=== PATIENT | male | born 1985 | race Caucasian/White ===

== ENCOUNTER 2016-04-30 13:43 | Emergency (ER) | payer MEDICAID ==
[2016-04-30] MEDS ORDERED: HYDROmorphone 1 MG/ML Syringe IVPUSH ONE ×2 (14:19→17:29)
[2016-04-30] MEDS ORDERED: Ondansetron 4 MG/2 ML SDV IVPUSH ONE (14:19)
[2016-04-30] MEDS ORDERED: Tamsulosin 0.4 MG Cap.ER PO ONE (14:20)
[2016-04-30] MEDS ORDERED: Sodium Chloride 0.9% 1,000 ML IV SCH (14:30)
[2016-04-30] MEDS ORDERED: Ketorolac 30 MG/ML SDV IVPUSH STA (15:09)
[2016-04-30] MEDS ORDERED: Sodium Chloride 0.9% 10 ML Syringe FLUSH PRN (16:03)
[2016-04-30] MEDS ORDERED: Iopamidol 612 MG/ML 150 ML Bottle IVPUSH ONE (16:03)
[2016-04-30] MEDS ORDERED: Diatrizoate Meglumine/Diatrizoate Sodium 37% 120 ML Bottle PO ONE (16:03)
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
[2016-04-30 18:35] VITALS: BP 141/98
--- NOTE | 2016-05-02 08:34 | CT ---
CT abdomen and pelvis Technique: Multiple axial sections were obtained from above the dome of the diaphragm inferiorly through the pubic symphysis. Intravenous and oral contrast has been given. Delayed images were also obtained through the abdomen and pelvis. Comparison: No previous exam. Findings: Two obstructing calculi noted within the mid right ureter. Larger stone measures approximately 5 mm and smaller stone measures approximately 2 mm. This causes proximal hydronephrosis. Kidneys show no abnormal calcifications. No other abnormal calcifications seen along the course of the ureters. Visualized lung bases are clear. Liver shows no focal parenchymal abnormality. Spleen size is normal. Adrenal glands show no nodule. Pancreas is within normal limits. Aorta shows no aneurysmal dilatation. No retroperitoneal adenopathy or mesenteric abnormalities are seen. Appendix is seen and appears normal. No pelvic mass or adenopathy is seen. Delayed images show contrast throughout the left ureter with lack of contrast within the distal right ureter. Bone window settings were reviewed which appear within normal limits for the patient's age. Impression: 1. Right-sided hydronephrosis secondary to 2 obstructing stones within the mid right ureter with one measuring about 5 mm and second measuring around 2 mm. 2. Other normal findings as described above. Diagnostic code #3 I agree with preliminary report issued by [facility] (preliminary report dictated on 04/30/16, 6:15 PM Central Time)
== END 2016-04-30 18:25 | disposition home or self-care (01) ==
LOC: JD.ED 13:43
DX: N20.1 Calculus of ureter (principal); I10 Essential (primary) hypertension; J45.909 Unspecified asthma, uncomplicated; K21.9 Gastro-esophageal reflux disease without esophagitis; K27.9 Peptic ulcer, site unspecified, unspecified as acute or chronic, without hemorrhage or perforation; G62.9 Polyneuropathy, unspecified; F41.9 Anxiety disorder, unspecified; F17.200 Nicotine dependence, unspecified, uncomplicated; Z88.8 Allergy status to other drugs, medicaments and biological substances; Z79.899 Other long term (current) drug therapy
CPT/HCPCS: 36415; 74177; 80053; 81001; 83690; 85025; 96361; 96374; 96375; 96376; 99284; A9270; J1170; J1885; J2405; J7040; J7050; Q9963; Q9967

== ENCOUNTER 2016-05-14 14:37 | Emergency (ER) | payer MEDICAID ==
[2016-05-14 14:45] VITALS: BP 139/96
--- NOTE | 2016-05-14 15:03 | EDM.PDOC ---
ED HPI RENAL/ - General Chief Complaint: Genitourinary Problem Stated Complaint: POST-SURGICAL ISSUES Time Seen by Provider: 05/14/16 14:55 Source of Information: Reports: Patient History Limitations: Reports: No limitations - History of Present Illness INITIAL COMMENTS - FREE TEXT/NARRATIVE: 30-year-old male tends ED with complaints of diffuse right flank and shaheed- abdominal pain. Patient underwent lithotripsy for removal of 2 stones in the proximal ureter on and [facility] in [facility]. This would've been May 12. He knows he has a urinary stent in place. Today's developed increasing pain particularly in the lower abdomen with grossly bloody urine. This gave him some concern. He thinks he may have notably passage of a small piece of stone today. Pain is constant without colicky component. He has used up all of his pain medication. He was worried that he may be developing infection although he has no fever or chills. Rates it does hurt to void particularly particularly at the end of voiding.was constipated for the first few days but states he had good bowel and this morning after taking laxatives last night. Symptom Onset Date: 05/12/16 Timing/Duration: Reports: Day(s):, Constant, Sudden onset, Waxing/waning Location: Reports: flank (primarily right flank and right lower quadrant of the abdomen.) Quality: Reports: burning, cramping, fullness, stabbing Severity: moderate Improves with: Reports: defecating Worsens with: Reports: urinating Context: Reports: recent surgery (recent right-sided lithotripsy for removal of 2 stones on , May 12.). Denies: sick contact, lifting, activity/ exercise Associated Symptoms: Reports: burning, dysuria, frequency, groin pain, blood in urine, abdominal pain (right flank primarily), constipation. Denies: testicular pain, penile discharge, blood in ejaculate, fever/chills, inguinal mass, nausea/vomiting, can't retract foreskin, diarrhea, bloody stools Treatments [employer]NA[employer]: Reports: Other (see below) ([place] when necessary took his last tablets this morning.) - Related Data Allergies/ADRs: Allergies Allergy/AdvReac Type Severity Reaction Status Date / Time codeine Allergy Difficulty Verified 05/14/16 14:45 Breathing fluoxetine [From Prozac] Allergy Hives Verified 05/14/16 14:45 tramadol [From Ultram] Allergy Difficulty Verified 05/14/16 14:45 Breathing Home Meds: Home Meds buPROPion HCl [Wellbutrin SR] 150 mg PO BID 02/01/16 [History] Gabapentin [Neurontin] 300 mg PO BID 05/14/16 [History] LORazepam [Ativan] 0.5 mg PO TID 05/14/16 [History] Lisinopril 40 mg PO DAILY 05/14/16 [History] Omeprazole Magnesium [Prilosec] 10 mg PO DAILY 05/14/16 [History] Vitamin B Complex/Folic Acid [Vitamin B-100 Complex] 0.4 mg PO DAILY 05/14/16 [ History] amLODIPine [Norvasc] 10 mg PO BEDTIME 05/14/16 [History] oxyCODONE HCl/Acetaminophen [Percocet 5-325 mg Tablet] 1 - 2 each PO Q4H PRN # 24 tablet 05/14/16 [Rx] Past Medical History Cardiovascular History: Reports: Hypertension Respiratory History: Reports: Asthma Gastrointestinal History: Reports: GERD, PUD Genitourinary History: Reports: Acute renal failure, Renal calculus ( lithotripsy carried out May 12, 2016 for removal of 2 stones.) Neurological History: Reports: Neuropathy, peripheral Psychiatric History: Reports: Anxiety - Infectious Disease History Infectious Disease History: Reports: Hepatitis C - Past Surgical History HEENT Surgical History: Reports: Adenoidectomy, Myringotomy w tube(s), Tonsillectomy GI Surgical History: Reports: Colonoscopy, EGD Musculoskeletal Surgical History: Reports: Shoulder surgery Social & Family History - Family History Oncologic: Reports: Lymphoma, Non-Hodgkin's lymphoma Other Oncologic Family History: dad and uncle - Tobacco Use Smoking Status *Q: Current Every Day Smoker Years of Tobacco use: 17 Packs/Tins Daily: 0.5 Used Tobacco, but Quit: No Second Hand Smoke Exposure: No - Caffeine Use Caffeine Use: Reports: None - Recreational Drug Use Recreational Drug Use: No Drug Use in Last 12 Months: Yes Recreational Drug Type: Reports: Marijuana/Hashish Recreational Drug Use Frequency: Socially - Living Situation & Occupation Living situation: Reports: single, other (with friend) Occupation: employed ([employer]) ED ROS GENERAL - Review of Systems Review Of Systems: See Below Constitutional: Reports: fatigue, decreased appetite. Denies: fever, chills, malaise, weakness, weight loss HEENT: Reports: No symptoms Respiratory: Reports: No Symptoms Cardiovascular: Reports: No symptoms Endocrine: Reports: no symptoms GI/Abdominal: Reports: Abdominal pain (see history of present illness), Constipation : Reports: flank pain, frequency, hematuria. Denies: urinary retention Musculoskeletal: Reports: back pain (right flank pain) Skin: Reports: no symptoms Neurological: Reports: No Symptoms Psychiatric: Reports: No symptoms Hematologic/Lymphatic: Reports: no symptoms Immunologic: Reports: no symptoms ED EXAM, RENAL/ - Physical Exam Exam: See Below Exam Limited By: No limitations General Appearance: alert, WD/WN, moderate distress (of a moderate degree of pain.) Throat/Mouth: Normal inspection, Normal lips, Normal oropharynx Neck: normal inspection, supple, non-tender, full range of motion Respiratory/Chest: no respiratory distress, lungs clear, normal breath sounds, no accessory muscle use Cardiovascular: normal peripheral pulses, regular rate, rhythm, no edema, no murmur GI/Abdominal: normal bowel sounds, soft, non tender, no organomegaly, no distention, no abnormal bruit (Male) Exam: No hernia, Normal inspection Back Exam: CVA tenderness (R) (moderate) Extremities: normal inspection, normal range of motion, non-tender, normal capillary refill Neurological: alert, oriented, CN II-XII intact, normal cognition, normal gait Psychiatric: normal affect, normal mood Skin Exam: Warm, Dry, Intact, Normal color, No rash Course - Vital Signs Last Recorded V/S: Last Vital Signs Temp 36.1 C 05/14/16 14:43 Pulse 100 05/14/16 14:43 Resp 18 05/14/16 14:43 BP 139/96 H 05/14/16 14:43 Pulse Ox 98 05/14/16 14:43 - Orders/Labs/Meds Orders: Active Orders 24 hr Category Date Time Status Abdomen 1V Flat [CR] Stat Exams 05/14/16 15:03 Taken Labs: Laboratory Tests 05/14/16 Range/Units 14:55 Urine Color Yellow (Yellow) Urine Appearance Cloudy H (Clear) Urine pH 6.5 (5.0-8.0) Ur Specific [place] > or = 1.030 (1.005-1.030) Urine Protein 3+ H (Negative) Urine Glucose (UA) Negative (Negative) Urine Ketones Trace H (Negative) Urine Occult Blood 3+ H (Negative) Urine Nitrite Negative (Negative) Urine Bilirubin Negative (Negative) Urine Urobilinogen 0.2 (0.2-1.0) Ur Leukocyte Esterase Negative (Negative) Urine RBC >100 H (0-5) /hpf Urine WBC 0-5 (0-5) /hpf Ur Epithelial Cells Not Reportable Ur Squamous Epith Cells 0-5 (0-5) /hpf Urine Bacteria Few (FEW) /hpf Urine Mucus Not seen (FEW) /hpf Meds: Medications Discontinued Medications Generic Name Dose Route Start Last Admin Trade Name Freq PRN Reason Stop Dose Admin Hydromorphone HCl 1 mg 05/14/16 15:04 05/14/16 15:16 Dilaudid IM 05/14/16 15:05 1 mg ONETIME ONE Administration Promethazine HCl 25 mg 05/14/16 15:04 05/14/16 15:14 Phenergan IM 05/14/16 15:05 25 mg ONETIME ONE Administration - Radiology Interpretation Free Text/Narrative:: 30-year-old male presents the ED for evaluation of increased pain in his right flank and right hemiabdomen down into the groin. Also appreciating. Blood in his urine today. Note that the patient underwent lithotripsy on May 12 which was 2 days ago at [facility]. He has a urinary stent in place on the right side. States has been hurting quite badly since time of surgery. She was 20 tablets of [place] the last 2 and half days. Push possible passage of small pieces of stone earlier today. Second problem is been with constipation which she feels he has improved by taking laxatives he had a good bowel movement this morning. Concern that he may have an infection on questioning something to control his pain. Most likely pain is secondary to passage of pieces of stone and the stent itself. Plan given an IM injection of Dilaudid 1 mg with Phenergan 25 mg IM.urinalysis to be obtained and a KUB will be done to make sure the stent is in its appropriate position. - Re-Assessments/Exams Free Text/Narrative Re-Assessment/Exam: 05/14/16 15:30KUB reveals the right-sided pigtail stent to be in the normal anatomical position as one would expect. The distal segment does lie low in the pelvis and likely is adjacent to the floor of the bladder. He is some mild increased stool throughout the right hemicolon. Few dilated loops of small bowel in the left upper abdomen. The urinalysis shows greater than 100 red blood cells per high-power field with no evidence of infection. Plan he will be discharged home with Percocet tablets for pain control and advised to drink plenty of fluids of course to prevent any clots recurring from the hematuria. At this time it is not. He needs any antibiotics. Departure - Departure Time of Disposition: 15:31 Disposition: Home, Self-Care 01 Condition: fair Clinical Impression: Renal colic on right side, Hematuria Prescriptions: oxyCODONE HCl/Acetaminophen [Percocet 5-325 mg Tablet] 1 - 2 each PO Q4H PRN # 24 tablet PRN Reason: pain relief. Referrals: PCP,Unobtain [Primary Care Provider] - Forms: ED Department Discharge Additional Instructions: evaluation in the emergency room today in regards to right flank pain with blood in the urine. You are now 2 days post lithotripsy with a stent in the right ureter to help promote passage of any bits and pieces of stone. X-ray reveals that the stent is in its appropriate position. There is still a small amount of increased stool throughout the right hemicolon but for the most part the left colon is empty. The urinalysis shows 20 red blood cells but no signs of infection. Therefore treatment is dictated triptorelin plenty of fluids. Pain medication Percocet 5 /325 mg tablets one or 2 every 4-6 hours needed for pain relief. Of note is okay to take Aleve 2 tablets every 8 hours as well which will relieve some of the pain and the inflammation caused by the stent. - My Orders Last 24 Hours: My Active Orders 05/14/16 15:03 Abdomen 1V Flat [CR] Stat - Assessment/Plan Last 24 Hours: My Active Orders 05/14/16 15:03 Abdomen 1V Flat [CR] Stat
[2016-05-14] MEDS ORDERED: HYDROmorphone 1 MG/ML Syringe IM ONE (15:04)
[2016-05-14] MEDS ORDERED: Promethazine 25 MG/ML SDV IM ONE (15:04)
--- NOTE | 2016-05-15 16:21 | CR ---
Abdomen: Supine view of the abdomen was obtained. Comparison: No previous abdominal x-ray, previous CT abdomen and pelvis exam of 04/30/16. Findings: Right ureteral stent is seen. Proximal end lies within the expected region of the renal pelvis and distal end lies within the expected region of the bladder. No abnormal calcifications are seen along the course of the ureter. Bowel gas is unremarkable. Bony structures are unremarkable for the patient's age. Impression: 1. Right ureteral stent. Supine abdominal x-ray is otherwise unremarkable. Diagnostic code #2
== END 2016-05-14 15:50 | disposition home or self-care (01) ==
LOC: JD.ED 14:37
DX: N23 Unspecified renal colic (principal); R31.9 Hematuria, unspecified; F17.210 Nicotine dependence, cigarettes, uncomplicated; I10 Essential (primary) hypertension; J45.909 Unspecified asthma, uncomplicated; K21.9 Gastro-esophageal reflux disease without esophagitis; F41.9 Anxiety disorder, unspecified; Z98.890 Other specified postprocedural states; Z79.899 Other long term (current) drug therapy; Z88.6 Allergy status to analgesic agent; Z88.8 Allergy status to other drugs, medicaments and biological substances; Z88.5 Allergy status to narcotic agent
CPT/HCPCS: 74000; 81001; 96372; 99284; J1170; J2550

== ENCOUNTER 2016-05-20 15:04 | Emergency (ER) | payer MEDICAID ==
[2016-05-20 15:43] VITALS: BP 141/97
[2016-05-20] MEDS ORDERED: Sulfamethoxazole/Trimethoprim 800-160 MG Tab PO ONE (16:35)
[2016-05-20] MEDS ORDERED: Ketorolac 60 MG/2 ML SDV IM ONE (16:39)
--- NOTE | 2016-05-20 16:46 | EDM.PDOC ---
ED HPI RENAL/ - General Chief Complaint: Genitourinary Problem Stated Complaint: PN WITH URINATION Time Seen by Provider: 05/20/16 15:43 Source of Information: Reports: Patient, Old records, RN notes reviewed History Limitations: Reports: No limitations - History of Present Illness INITIAL COMMENTS - FREE TEXT/NARRATIVE: The patient was seen by me in this ED 04/30/2016, at which time he was diagnosed with a 4.3 millimeter proximal right ureterolith. On 05/11/2016, he underwent cystoscopy with right ureteral stent placement and laser treatment of the stones. The ureteral stent was kept in place, and the patient was discharged with prescriptions for 24 tablets of Nenzel 5/325, and ciprofloxacin. He was seen again in this ED 05/14/2016 for bloody urine and right ureteral pain. He states that he had run out of the Nenzel prescribed by his Urologist. A urinalysis was grossly unremarkable, and an x-ray confirmed appropriate placement of the ureteral stent. The patient was discharged home with a prescription for 24 tablets of Percocet 5/325. He now returns to the ED with a complaint of pain in his right flank whenever he overexerts himself, or after he urinates. His urine is no longer grossly bloody. He is to followup with his Urologist this coming week. No recent fever, nausea, vomiting, constipation, or diarrhea. - Related Data Allergies/ADRs: Allergies Allergy/AdvReac Type Severity Reaction Status Date / Time codeine Allergy Difficulty Verified 05/14/16 14:45 Breathing fluoxetine [From Prozac] Allergy Hives Verified 05/14/16 14:45 tramadol [From Ultram] Allergy Difficulty Verified 05/14/16 14:45 Breathing Home Meds: Home Meds buPROPion HCl [Wellbutrin SR] 150 mg PO BID 02/01/16 [History] Gabapentin [Neurontin] 300 mg PO BID 05/14/16 [History] Lisinopril 40 mg PO DAILY 05/14/16 [History] Omeprazole Magnesium [Prilosec] 20 mg PO DAILY 05/14/16 [History] Vitamin B Complex/Folic Acid [Vitamin B-100 Complex] 100 mg PO DAILY 05/14/16 [ History] amLODIPine [Norvasc] 10 mg PO BEDTIME 05/14/16 [History] oxyCODONE HCl/Acetaminophen [Percocet 5-325 mg Tablet] 1 - 2 each PO Q4H PRN # 24 tablet 05/14/16 [Rx] Sulfamethoxazole/Trimethoprim [Bactrim Ds Tablet] 1 tab PO Q12H #9 tablet [Rx] Past Medical History Cardiovascular History: Reports: Hypertension Respiratory History: Reports: Asthma Gastrointestinal History: Reports: GERD, PUD Genitourinary History: Reports: Acute renal failure, Renal calculus Neurological History: Reports: Neuropathy, peripheral Psychiatric History: Reports: Anxiety - Infectious Disease History Infectious Disease History: Reports: Hepatitis C - Past Surgical History HEENT Surgical History: Reports: Adenoidectomy, Myringotomy w tube(s), Tonsillectomy GI Surgical History: Reports: Colonoscopy, EGD Male Surgical History: Reports: Lithotripsy (ESWL), Ureteral stent Musculoskeletal Surgical History: Reports: Shoulder surgery Social & Family History - Family History Oncologic: Reports: Lymphoma, Non-Hodgkin's lymphoma Other Oncologic Family History: dad and uncle - Tobacco Use Smoking Status *Q: Current Every Day Smoker Years of Tobacco use: 17 Packs/Tins Daily: 1 - Caffeine Use Caffeine Use: Reports: None - Alcohol Use Alcohol Use History: No - Recreational Drug Use Recreational Drug Use: Yes Drug Use in Last 12 Months: Yes Recreational Drug Type: Reports: Marijuana/Hashish Recreational Drug Use Frequency: Socially - Living Situation & Occupation Living situation: Reports: single, other (with friend) 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) ED ROS GENERAL - Review of Systems Review Of Systems: See Below Constitutional: Reports: no symptoms HEENT: Reports: No symptoms Respiratory: Reports: No Symptoms Cardiovascular: Reports: No symptoms Endocrine: Reports: no symptoms GI/Abdominal: Reports: No symptoms : Reports: flank pain Musculoskeletal: Reports: no symptoms Skin: Reports: no symptoms Neurological: Reports: No Symptoms Psychiatric: Reports: No symptoms Hematologic/Lymphatic: Reports: no symptoms Immunologic: Reports: no symptoms ED EXAM, RENAL/ - Physical Exam Exam: See Below Exam Limited By: No limitations General Appearance: alert, WD/WN, no apparent distress Eye Exam: bilateral eye: EOMI, normal inspection Ears: normal external exam, hearing grossly normal Nose: normal inspection, no blood Throat/Mouth: Normal inspection, Normal lips, Normal voice, No airway compromise Head: atraumatic, normocephalic Neck: normal inspection, full range of motion Respiratory/Chest: no respiratory distress, lungs clear, normal breath sounds, no accessory muscle use Cardiovascular: normal peripheral pulses, regular rate, rhythm, no gallop, no JVD, no murmur, no rub GI/Abdominal: normal bowel sounds, soft, no organomegaly, no distention, no abnormal bruit, no mass, tender (to RLQ) (Male) Exam: Deferred Rectal (Males) Exam: Deferred Back Exam: normal inspection, full range of motion, CVA tenderness (R) (minimal) . No: CVA tenderness (L) Extremities: normal inspection, normal range of motion, no pedal edema, normal capillary refill Neurological: alert, oriented, normal cognition, no motor/sensory deficits Psychiatric: normal affect Skin Exam: Warm, Dry, Intact, Normal color, No rash Lymphatic: no adenopathy Course - Vital Signs Last Recorded V/S: Last Vital Signs Temp 36.8 C 05/20/16 15:42 Pulse 107 H 05/20/16 15:42 Resp 20 05/20/16 15:42 BP 141/97 H 05/20/16 15:42 Pulse Ox 98 05/20/16 15:42 - Orders/Labs/Meds Labs: Laboratory Tests 05/20/16 Range/Units 16:10 Urine Color Yellow (Yellow) Urine Appearance Cloudy H (Clear) Urine pH 6.0 (5.0-8.0) Ur Specific Logan > or = 1.030 (1.005-1.030) Urine Protein 2+ H (Negative) Urine Glucose (UA) Negative (Negative) Urine Ketones Negative (Negative) Urine Occult Blood 3+ H (Negative) Urine Nitrite Negative (Negative) Urine Bilirubin Negative (Negative) Urine Urobilinogen 0.2 (0.2-1.0) Ur Leukocyte Esterase 1+ H (Negative) Urine RBC >100 H (0-5) /hpf Urine WBC 5-10 H (0-5) /hpf Ur Epithelial Cells 0-5 (0-5) /hpf Urine Bacteria Many H (FEW) /hpf Urine Mucus Not seen (FEW) /hpf Meds: Medications Discontinued Medications Generic Name Dose Route Start Last Admin Trade Name Freq PRN Reason Stop Dose Admin Ketorolac Tromethamine 60 mg 05/20/16 16:39 04/14/17 16:44 Toradol IM 05/20/16 16:40 60 mg ONETIME ONE Administration Trimethoprim/Sulfamethoxazole 1 tab 05/20/16 16:35 05/20/16 16:44 Septra Ds PO 05/20/16 16:36 1 tab ONETIME ONE Administration - Re-Assessments/Exams Free Text/Narrative Re-Assessment/Exam: 05/20/16 17:14 Based on the patient's symptoms, I felt that the patient was continuing to have ureteral spasm due to the continued presence of the double pigtail ureteral stent, and I therefore recommended that he take Flomax. He stated that he has lots of Flomax at home, that he is not currently taking, however, they requested a prescription for Percocet. I explained that we do not refill opioids in the ED. He stated that he received a refill the last time he was here, which I point out is even more reason that he should not get a re-refill. As far as I can see, the patient's postoperative course is within normal limits, and if his pain is still persisting to the point that he needs opioids, he needs to see his Urologist. He could have called her today, but did not. The patient then asked me no less than 6 times for either a shot of Dilaudid, or "just enough Percocet to get me through". The answer was "no" each time. Further, review of the [place] PMPi finds that the patient has 47 prescriptions for controlled substances by 25 prescribers. In particular, prescriptions for opioids goes as far back as 05/22/2013, long before he developed this particular ureterolith. Based on the above, I have to conclude that the patient is drug seeking. His urinalysis demonstrates 3+ blood, > 100 RBCs, is nitrite negative, and has 1 + leukocyte esterase, all of which are unchanged from his earlier urinalysis 05/14, however, he now has 5-10 WBCs whereas he previously had 0-5, and he has many bacteria, where as previously he had few. While this is not conclusive for UTI, I have sent a urine for culture, and will start the patient on oral Bactrim. Departure - Departure Time of Disposition: 16:40 Disposition: Home, Self-Care 01 Condition: fair Clinical Impression: Abnormal urinalysis, Pain due to ureteral stent, Drug-seeking behavior Prescriptions: Sulfamethoxazole/Trimethoprim [Bactrim Ds Tablet] 1 tab PO Q12H #9 tablet Instructions: Ureteral Stent Implantation, Care After Referrals: PCP,Not In Area [Primary Care Provider] - Nolvia Walters NP [Ordering Only Provider] - Forms: ED Department Discharge Additional Instructions: You were seen in the emergency room for continued right flank pain after receiving a right ureteral stent. Workup in the ER included a urinalysis. Your urinalysis is abnormal, but not necessarily due to an infection. A sample of your urine has been sent for culture, which should have results ready by 05/23/2016. You have been started on the antibiotic Bactrim. Take one tablet every 12 hours , starting tomorrow morning, 05/21/2016, as prescribed. Contact the office of Nolvia Walters on 05/23/2016, and ask them to check on your urine culture results. If you have a urinary tract infection, the need to confirm that the bacteria is susceptible to Bactrim. If you do not have a urinary tract infection, stop taking the Bactrim. Stay adequately hydrated. We recommend that you take your previously prescribed Flomax, one tablet daily, to help with pain from ureteral spasm. Followup with your Urologist this coming week. If any other problems, please do not hesitate to return to the ER.
== END 2016-05-20 16:50 | disposition home or self-care (01) ==
LOC: SUPCPDRO 15:04 → JD.ED 15:04
DX: T83.84XA Pain due to genitourinary prosthetic devices, implants and grafts, initial encounter (principal); Z96.0 Presence of urogenital implants; Z76.5 Malingerer [conscious simulation]; I10 Essential (primary) hypertension; J45.909 Unspecified asthma, uncomplicated; K21.9 Gastro-esophageal reflux disease without esophagitis; F41.9 Anxiety disorder, unspecified; Z98.890 Other specified postprocedural states; Z79.899 Other long term (current) drug therapy; F17.210 Nicotine dependence, cigarettes, uncomplicated; Z88.5 Allergy status to narcotic agent
CPT/HCPCS: 81001; 99283; A9270; J1885; 96372

== ENCOUNTER 2016-05-29 18:33 | Emergency (ER) | payer MEDICAID ==
[2016-05-29 19:00] VITALS: BP 132/93
--- NOTE | 2016-05-29 19:00 | EDM.PDOC ---
ED HPI Trauma - General Chief Complaint: Lower Extremity Injury/Pain Stated Complaint: LEFT KNEE INJURY Time Seen by Provider: 05/29/16 18:52 Source: Reports: Patient History Limitations: Reports: No limitations - History of Present Illness INITIAL COMMENTS - FREE TEXT/NARRATIVE: Patient is a 30-year-old male who presents to the ED complaining of left knee pain. States the pain has been present for the past 3 days with unclear etiology to what caused it. States he works out a lot and questions with squatting that he may have strained his knee. States the pain is constant and mild at rest. Worsened with ambulation. Denies locking of the knee with bending and walking. He has been utilizing a knee brace with minimal relief. He denies taking any [id number] medications. He has not been applying ice to the affected area. He has no prior injury to his left knee. He denies any additional complaints. Occurred When: other Occurred Where: other (unknown) Method of Injury: other (unknown, ?lifting weights) Severity: mild Pain/Injury Location: Reports: lower extremity, left (knee) Associated Symptoms: Reports: trouble walking (2nd to pain) Allergies/ADRs: Allergies codeine Allergy (Verified 05/14/16 14:45) Difficulty Breathing fluoxetine [From Prozac] Allergy (Verified 05/14/16 14:45) Hives tramadol [From Ultram] Allergy (Verified 05/14/16 14:45) Difficulty Breathing Home Medications: Ambulatory Orders buPROPion HCl [Wellbutrin SR] 150 mg PO BID 02/01/16 [Confirmed 05/29/16] Gabapentin [Neurontin] 300 mg PO BID 05/14/16 [Confirmed 05/29/16] Lisinopril 40 mg PO DAILY 05/14/16 [Confirmed 05/29/16] Omeprazole Magnesium [Prilosec] 20 mg PO DAILY 05/14/16 [Confirmed 05/29/16] Vitamin B Complex/Folic Acid [Vitamin B-100 Complex] 100 mg PO DAILY 05/14/16 [ Confirmed 05/29/16] amLODIPine [Norvasc] 10 mg PO BEDTIME 05/14/16 [Confirmed 05/29/16] Ibuprofen 600 mg PO Q6HR PRN #20 tablet 05/29/16 Past Medical History Cardiovascular History: Reports: Hypertension Respiratory History: Reports: Asthma Gastrointestinal History: Reports: GERD, PUD Genitourinary History: Reports: Acute renal failure, Renal calculus Neurological History: Reports: Neuropathy, peripheral Psychiatric History: Reports: Anxiety - Infectious Disease History Infectious Disease History: Reports: Hepatitis C - Past Surgical History HEENT Surgical History: Reports: Adenoidectomy, Myringotomy w tube(s), Tonsillectomy GI Surgical History: Reports: Colonoscopy, EGD Male Surgical History: Reports: Lithotripsy (ESWL), Ureteral stent Musculoskeletal Surgical History: Reports: Shoulder surgery Social & Family History - Family History Oncologic: Reports: Lymphoma, Non-Hodgkin's lymphoma Other Oncologic Family History: dad and uncle - Tobacco Use Smoking Status *Q: Current Every Day Smoker Years of Tobacco use: 17 Packs/Tins Daily: 1 Used Tobacco, but Quit: No Second Hand Smoke Exposure: No - Caffeine Use Caffeine Use: Reports: None - Recreational Drug Use Recreational Drug Use: Yes Drug Use in Last 12 Months: Yes Recreational Drug Type: Reports: Marijuana/Hashish Recreational Drug Use Frequency: Socially - Living Situation & Occupation Living situation: Reports: single, other (with friend) 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 Denies: joint swelling Neurological: Denies: Numbness, Tingling Trauma Exam - Physical Exam Exam: See Below Exam Limited By: No limitations General Appearance: Reports: alert, WD/WN, no apparent distress Ears: Reports: hearing grossly normal Nose: Reports: normal inspection Throat/Mouth: Reports: Normal voice, No airway compromise Respiratory Exam: Reports: no respiratory distress, lungs clear, normal breath sounds, no accessory muscle use Cardiovascular: Reports: normal peripheral pulses, regular rate, rhythm Extremities: Reports: no evidence of injury, normal range of motion, no pedal edema, pain with movement (flexion/extension/valgus/varus left knee. joint is stable. external/internal rotation of lower leg with straightening of knee pain to the lateral joint line. No catching noted. ) Neurologic: Reports: no motor/sensory deficits, alert, normal mood/affect, oriented x 3 Skin: Reports: Normal color, Warm/dry Course - Vital Signs Last Recorded V/S: Last Vital Signs Temp 98.5 F 05/29/16 18:51 Pulse 96 05/29/16 18:51 Resp 18 05/29/16 18:51 BP 132/93 H 05/29/16 18:51 Pulse Ox 97 05/29/16 18:51 - Orders/Labs/Meds Orders: Active Orders 24 hr Category Date Time Status DME for Discharge [COMM] Stat Oth 05/29/16 19:01 Ordered Meds: Medications Discontinued Medications Generic Name Dose Route Start Last Admin Trade Name Freq PRN Reason Stop Dose Admin Ketorolac Tromethamine 60 mg 05/29/16 19:01 05/29/16 19:06 Toradol IM 05/29/16 19:02 60 mg ONETIME ONE Administration - Re-Assessments/Exams Free Text/Narrative Re-Assessment/Exam: 05/29/16 19:01 Ordered toradal 60mg IM and crutches. Injury was not traumatic thus x-ray would not necessitated. Examination elicited left lateral pain with palpation and with examination for stability. No catching noted. Etiology LCL sprain or meniscus involvement. Will discharge home with instructions and crutches per request of patient. Departure - Departure Time of Disposition: 19:25 Disposition: Home, Self-Care 01 Condition: good Clinical Impression: Left lateral knee pain Knee LCL sprain Qualifiers: Encounter type: initial encounter Laterality: left Qualified Code(s): S83.422A - Sprain of lateral collateral ligament of left knee, initial encounter Prescriptions: Ibuprofen 600 mg PO Q6HR PRN #20 tablet PRN Reason: Pain Instructions: Knee Pain, Knee Sprain, [id number] Referrals: PCP,Unknown [Ordering Only Provider] - Forms: ED Department Discharge Additional Instructions: Suggest applying ice to the affected knee 4 to 6 times daily, 20 minutes in duration, do not apply ice directly on the skin. Utilize crutches for the next 3 to 5 days advancing weight as tolerated thereafter. Take ibuprofen and tylenol in alternating fashion for pain. Elevate when able to reduce swelling and pain. Followup with PCP this coming week for reevaluation. Return to the E.D. for any new or worsening pain. Refrain from any activities that cause worsening pain. - My Orders Last 24 Hours: My Active Orders 05/29/16 19:01 DME for Discharge [COMM] Stat - Assessment/Plan Last 24 Hours: My Active Orders 05/29/16 19:01 DME for Discharge [COMM] Stat
[2016-05-29] MEDS ORDERED: Ketorolac 60 MG/2 ML SDV IM ONE (19:01)
== END 2016-05-29 19:37 | disposition home or self-care (01) ==
LOC: JD.ED 18:33
DX: S83.422A Sprain of lateral collateral ligament of left knee, initial encounter (principal); I10 Essential (primary) hypertension; J45.909 Unspecified asthma, uncomplicated; K21.9 Gastro-esophageal reflux disease without esophagitis; F41.9 Anxiety disorder, unspecified; F17.210 Nicotine dependence, cigarettes, uncomplicated; Z98.890 Other specified postprocedural states; Z88.5 Allergy status to narcotic agent; Z88.8 Allergy status to other drugs, medicaments and biological substances; X58.XXXA Exposure to other specified factors, initial encounter
CPT/HCPCS: 96372; 99283; J1885

== ENCOUNTER 2017-06-24 08:11 | Emergency (ER) | payer MEDICAID ==
[2017-06-24 08:25] VITALS: BP 176/136
[2017-06-24] MEDS ORDERED: Ondansetron 4 MG/2 ML SDV IVPUSH ONE (08:39)
[2017-06-24] MEDS ORDERED: Sodium Chloride 0.9% 10 ML Syringe FLUSH PRN (08:39)
[2017-06-24] MEDS ORDERED: Ketorolac 30 MG/ML SDV IVPUSH ONE (08:40)
[2017-06-24] MEDS ORDERED: HYDROmorphone 0.5 MG/0.5 ML SYRINGE IVPUSH ONE ×2 (08:40→10:26)
[2017-06-24] MEDS ORDERED: Sodium Chloride 0.9% 1,000 ML IV SCH (08:45)
--- NOTE | 2017-06-24 08:45 | EDM.PDOC ---
ED HPI GENERAL MEDICAL PROBLEM - General Chief Complaint: Abdominal Pain Stated Complaint: KIDNEY PAIN AND NAUSEA Time Seen by Provider: 06/24/17 08:23 Source of Information: Reports: Patient History Limitations: Reports: No Limitations - History of Present Illness INITIAL COMMENTS - FREE TEXT/NARRATIVE: The patient presents with right flank and right sided abdominal pain. This started at 8pm last night. He has a history of kidney stones. He has nausea but no vomiting. He has no fever, chills, cough, chest pain, shortness of breath, diarrhea, dysuria or hematuria. He had to get a stent and for his last kidney stone a few years ago. He still has his appendix. Onset: Sudden Duration: Day(s): (Last night at 8pm) Location: Reports: Abdomen, Back (Right flank) Quality: Reports: Sharp Severity: Severe Improves with: Reports: None Worsens with: Reports: None Associated Symptoms: Reports: Nausea/Vomiting. Denies: Chest Pain, Cough, Fever /Chills, Headaches, Shortness of Breath Right Lower Abdomen Pain Score (Numeric/FACES): 8 - Related Data Allergies Allergy/AdvReac Type Severity Reaction Status Date / Time codeine Allergy Difficulty Verified 06/24/17 08:25 Breathing fluoxetine [From Prozac] Allergy Hives Verified 06/24/17 08:25 tramadol [From Ultram] Allergy Difficulty Verified 06/24/17 08:25 Breathing Home Meds: Home Meds buPROPion HCl [Wellbutrin SR] 150 mg PO BID 02/01/16 [History] ALPRAZolam [ALPRAZolam ODT] 0.25 mg PO Q4H PRN 06/24/17 [History] Hydrocodone/Acetaminophen [Hydrocodon-Acetaminophen 5-325] 1 - 2 each PO Q6HR PRN #10 tablet 06/24/17 [Rx] Past Medical History Cardiovascular History: Reports: Hypertension Respiratory History: Reports: Asthma Gastrointestinal History: Reports: GERD, PUD Genitourinary History: Reports: Acute Renal Failure, Renal Calculus Neurological History: Reports: Neuropathy, Peripheral Psychiatric History: Reports: Anxiety - Infectious Disease History Infectious Disease History: Reports: Hepatitis C - Past Surgical History HEENT Surgical History: Reports: Adenoidectomy, Myringotomy w Tube(s), Tonsillectomy GI Surgical History: Reports: Colonoscopy, EGD Male Surgical History: Reports: Lithotripsy (ESWL), Ureteral Stent Musculoskeletal Surgical History: Reports: Shoulder Surgery Social & Family History - Family History Family Medical History: Noncontributory Cardiac: Reports: Hypertension Oncologic: Reports: Lymphoma, Non-Hodgkin's Lymphoma Other Oncologic Family History: dad and uncle - Tobacco Use Smoking Status *Q: Current Every Day Smoker Years of Tobacco use: 16 Packs/Tins Daily: 1 - Caffeine Use Caffeine Use: Reports: Soda - Recreational Drug Use Recreational Drug Use: No - Living Situation & Occupation Living situation: Reports: Single, Other Occupation: Employed ED ROS GENERAL - Review of Systems Review Of Systems: See Below Constitutional: Reports: No Symptoms HEENT: Reports: No Symptoms Respiratory: Reports: No Symptoms Cardiovascular: Reports: No Symptoms Endocrine: Reports: No Symptoms GI/Abdominal: Reports: Abdominal Pain, Nausea. Denies: Diarrhea, Vomiting : Reports: Flank Pain (Right) Musculoskeletal: Reports: No Symptoms Skin: Reports: No Symptoms ED EXAM, GI/ABD - Physical Exam Exam: See Below Exam Limited By: No Limitations General Appearance: Alert, No Apparent Distress Ears: Normal External Exam Nose: Normal Inspection Head: Atraumatic, Normocephalic Neck: Normal Inspection Respiratory/Chest: No Respiratory Distress, Lungs Clear, Normal Breath Sounds Cardiovascular: Regular Rate, Rhythm, No Edema, No Murmur GI/Abdominal Exam: Soft, No Organomegaly, No Mass, Tender (Moderate tenderness to the right abdomen) Back Exam: CVA Tenderness (R) Extremities: Normal Inspection Neurological: Alert, Oriented Course - Vital Signs Last Recorded V/S: Last Vital Signs Temp 98.0 F 06/24/17 08:20 Pulse 105 H 06/24/17 08:20 Resp 16 06/24/17 08:20 BP 176/136 H 06/24/17 08:20 Pulse Ox 100 06/24/17 08:20 - Orders/Labs/Meds Orders: Active Orders 24 hr Category Date Time Status Peripheral IV Care [RC] . DIRECTED Care 06/24/17 08:39 Active Abdomen Pelvis wo Cont [CT] Stat Exams 06/24/17 08:39 Taken UA W/MICROSCOPIC [URIN] Stat Lab 06/24/17 08:35 Ordered HYDROmorphone [Dilaudid] Med 06/24/17 10:26 Once 0.5 mg IVPUSH ONETIME ONE Sodium Chloride 0.9% [Normal Saline] 1,000 ml Med 06/24/17 08:45 Active IV ASDIRECTED Sodium Chloride 0.9% [Saline Flush] Med 06/24/17 08:39 Active 10 ml FLUSH ASDIRECTED PRN ED Antiemetic Medication Reflex [OM.PC] Stat Ot 06/24/17 08:39 Ordered Peripheral IV Insertion Adult [OM.PC] Stat Ot 06/24/17 08:39 Ordered Medication Orders Sodium Chloride (Normal Saline) 1,000 mls @ 125 mls/hr IV ASDIRECTED ARIK Last Admin: 06/24/17 09:01 Dose: 125 mls/hr Sodium Chloride (Saline Flush) 10 ml FLUSH ASDIRECTED PRN PRN Reason: Keep Vein Open Last Admin: 06/24/17 09:04 Dose: 10 ml Labs: Laboratory Tests 06/24/17 06/24/17 06/24/17 Range/Units 08:35 08:48 08:48 WBC 7.41 (4.23-9.07) K/mm3 RBC 5.11 (4.63-6.08) M/mm3 Hgb 16.6 (13.7-17.5) gm/L Hct 47.0 (40.1-51.0) % MCV 92.0 (79.0-92.2) fl MCH 32.5 H (25.7-32.2) pg MCHC 35.3 (32.2-35.5) g/dl RDW Std Deviation 47.5 H (35.1-43.9) fL Plt Count 239 (163-337) K/mm3 MPV 8.9 L (9.4-12.3) fl Neut % (Auto) 51.5 (34.0-67.9) % Lymph % (Auto) 33.7 (21.8-53.1) % [place] % (Auto) 11.9 (5.3-12.2) % Eos % (Auto) 1.5 (0.8-7.0) Baso % (Auto) 0.3 (0.1-1.2) % Neut # (Auto) 3.82 (1.78-5.38) K/mm3 Lymph # (Auto) 2.50 (1.32-3.57) K/mm3 [place] # (Auto) 0.88 H (0.30-0.82) K/mm3 Eos # (Auto) 0.11 (0.04-0.54) K/mm3 Baso # (Auto) 0.02 (0.01-0.08) K/mm3 Sodium 136 (136-145) mEq/L Potassium 3.8 (3.5-5.1) mEq/L Chloride 101 (98-107) mEq/L Carbon Dioxide 26 (21-32) mEq/L Anion Gap 12.8 (5-15) BUN 19 H (7-18) mg/dL Creatinine 0.9 (0.7-1.3) mg/dL Est Cr Clr Drug Dosing 106.33 mL/min Estimated GFR (MDRD) > 60 (>60) mL/min BUN/Creatinine Ratio 21.1 H (14-18) Glucose 91 (74-106) mg/dL Calcium 8.6 (8.5-10.1) mg/dL Total Bilirubin 0.6 (0.2-1.0) mg/dL AST 42 H (15-37) U/L ALT 77 H (16-63) U/L Alkaline Phosphatase 91 (46-116) U/L Total Protein 7.6 (6.4-8.2) g/dl Albumin 3.8 (3.4-5.0) g/dl Globulin 3.8 gm/dL Albumin/Globulin Ratio 1.0 (1-2) Lipase 123 (73-393) U/L Urine Color Yellow (Yellow) Urine Appearance Clear (Clear) Urine pH 7.0 (5.0-8.0) Ur Specific [place] 1.025 (1.005-1.030) Urine Protein Negative (Negative) Urine Glucose (UA) Negative (Negative) Urine Ketones Negative (Negative) Urine Occult Blood Negative (Negative) Urine Nitrite Negative (Negative) Urine Bilirubin Negative (Negative) Urine Urobilinogen 0.2 (0.2-1.0) Ur Leukocyte Esterase Negative (Negative) Urine RBC Not seen (0-5) /hpf Urine WBC 0-5 (0-5) /hpf Ur Epithelial Cells Not seen (0-5) /hpf Urine Bacteria Few (FEW) /hpf Urine Mucus Not seen (FEW) /hpf Meds: Medications Generic Name Dose Route Start Last Admin Trade Name Freq PRN Reason Stop Dose Admin Sodium Chloride 1,000 mls @ 125 mls/hr 06/24/17 08:45 06/24/17 09:01 Normal Saline IV 125 mls/hr ASDIRECTED ARIK Administration Sodium Chloride 10 ml 06/24/17 08:39 06/24/17 09:04 Saline Flush FLUSH 10 ml ASDIRECTED PRN Administration Keep Vein Open Discontinued Medications Generic Name Dose Route Start Last Admin Trade Name George PRN Reason Stop Dose Admin Hydromorphone HCl 1 mg 06/24/17 08:40 06/24/17 09:01 Dilaudid IVPUSH 06/24/17 08:41 1 mg ONETIME ONE Administration Ketorolac Tromethamine 30 mg 06/24/17 08:40 06/24/17 09:00 Toradol IVPUSH 06/24/17 08:41 30 mg ONETIME ONE Administration Ondansetron HCl 4 mg 06/24/17 08:39 06/24/17 09:00 Zofran IVPUSH 06/24/17 08:40 4 mg ONETIME ONE Administration - Re-Assessments/Exams Free Text/Narrative Re-Assessment/Exam: 06/24/17 08:44 I ordered an IV NS at 125mL/hr, zofran 4mg IV, dilaudid 1mg IV, toradol 30mg IV , labs, UA and a CT of his abdomen and pelvis. 06/24/17 10:26 His CBC looks good. His AST is 42. His ALT is 77. He has a history of hepatitis C. His lipase is negative. His UA shows no UTI. His CT shows multiple bilateral renal calculi. The right kidney contains a 2mm stone involving its lower pole the left kidney contains multiple stones measuring between 1-2mm in it mid to upper pole. No evidence for ureterolithiasis or hydronephrosis. Normal appendix right lower quadrant. When compared to the prior CT scan dated 04/30/2016 the previously noted right ureteral stone is no longer seen. He feels a little better. I will give him another dose of dilaudid. He may have passed the stone already. I will give him something for pain and discharge home. Departure - Departure Time of Disposition: 10:30 Disposition: Home, Self-Care 01 Condition: Good Clinical Impression: Flank pain, Kidney stones Abdominal pain Qualifiers: Abdominal location: right lower quadrant Qualified Code(s): R10.31 - Right lower quadrant pain - Discharge Information Prescriptions: Hydrocodone/Acetaminophen [Hydrocodon-Acetaminophen 5-325] 1 - 2 each PO Q6HR PRN #10 tablet PRN Reason: Pain Referrals: PCP,None [Ordering Only Provider] - Forms: ED Department Discharge, ED Return to Work/School Form Additional Instructions: Drink plenty of fluids. Take motrin or aleve for pain or you may try a hydrocodone. Please return if you are worse. - My Orders Last 24 Hours: My Active Orders 06/24/17 08:35 UA W/MICROSCOPIC [URIN] Stat 06/24/17 08:39 Peripheral IV Care [RC] . DIRECTED Abdomen Pelvis wo Cont [CT] Stat Sodium Chloride 0.9% [Saline Flush] 10 ml FLUSH ASDIRECTED PRN ED Antiemetic Medication Reflex [OM.PC] Stat Peripheral IV Insertion Adult [OM.PC] Stat 06/24/17 08:45 Sodium Chloride 0.9% [Normal Saline] 1,000 ml IV ASDIRECTED 06/24/17 10:26 HYDROmorphone [Dilaudid] 0.5 mg IVPUSH ONETIME ONE - Assessment/Plan Last 24 Hours: My Active Orders 06/24/17 08:35 UA W/MICROSCOPIC [URIN] Stat 06/24/17 08:39 Peripheral IV Care [RC] . DIRECTED Abdomen Pelvis wo Cont [CT] Stat Sodium Chloride 0.9% [Saline Flush] 10 ml FLUSH ASDIRECTED PRN ED Antiemetic Medication Reflex [OM.PC] Stat Peripheral IV Insertion Adult [OM.PC] Stat 06/24/17 08:45 Sodium Chloride 0.9% [Normal Saline] 1,000 ml IV ASDIRECTED 06/24/17 10:26 HYDROmorphone [Dilaudid] 0.5 mg IVPUSH ONETIME ONE
--- NOTE | 2017-06-26 08:31 | CT ---
CT abdomen and pelvis Technique: Multiple axial sections were obtained from above the dome of the diaphragm and inferiorly through the pubic symphysis. Intravenous and oral contrast was not utilized. Comparison: Prior CT exam of 04/30/16 is available. Findings: Multiple small nonobstructing calculi noted within both kidneys measuring less than 5 mm. Ureters show no dilatation. No abnormal calcifications seen along the course of the ureters. Prior study showed an obstructing stone within the right ureter which is no longer seen. Visualized lung bases show nothing acute. Noncontrast appearance of the liver and spleen appears within normal limits. Adrenal glands show no nodule. Pancreas is within normal limits. Gallbladder contains no calcified gallstones. Aorta shows no aneurysmal dilatation. No retroperitoneal adenopathy or mesenteric abnormalities are seen. Appendix is seen and is normal. No pelvic mass or adenopathy is seen. No inflammatory change or free fluid is seen. Visualized lung bases show nothing acute. Bone window settings were reviewed which appear within normal limits for the patient's age. Impression: 1. Small bilateral nonobstructing calculi. No ureteral dilatation or ureteral stone is seen. 2. Nothing acute is seen on noncontrast CT study of the abdomen and pelvis performed as a ureteral stone protocol. Diagnostic code #2 I agree with preliminary report from [facility], finalized at 06/24/17, 10:29 AM Central Time
== END 2017-06-24 10:59 | disposition home or self-care (01) ==
LOC: JD.ED 08:11
DX: N20.0 Calculus of kidney (principal); I10 Essential (primary) hypertension; F17.210 Nicotine dependence, cigarettes, uncomplicated; Z88.5 Allergy status to narcotic agent; Z88.8 Allergy status to other drugs, medicaments and biological substances
CPT/HCPCS: 36415; 74176; 80053; 81001; 83690; 85025; 96361; 96374; 96375; 96376; 99284; J1170; J1885; J2405; J7040; J7050

== ENCOUNTER 2017-08-08 11:42 | Emergency (ER) | payer MEDICAID ==
[2017-08-08] MEDS ORDERED: Sodium Chloride 0.9% 1,000 ML IV ONE ×2 (12:15→13:48)
[2017-08-08] MEDS ORDERED: Sodium Chloride 0.9% 10 ML Syringe FLUSH PRN (12:15)
[2017-08-08] MEDS ORDERED: Ondansetron 4 MG/2 ML SDV IVPUSH ONE ×2 (12:15→13:48)
--- NOTE | 2017-08-08 12:31 | EDM.PDOC ---
ED HPI GENERAL MEDICAL PROBLEM - General Chief Complaint: Gastrointestinal Problem Stated Complaint: NAUSEA FOR 3 DAYS Time Seen by Provider: 08/08/17 12:01 Source of Information: Reports: Patient, Old Records History Limitations: Reports: No Limitations - History of Present Illness INITIAL COMMENTS - FREE TEXT/NARRATIVE: 32-year-old male presents for evaluation treatment of nausea, vomiting and left lower quadrant abdominal pain. Patient reports the nausea for started about 3 days ago. States that he vomited 2 times yesterday and once today. He then began having left lower quadrant abdominal pain last night. He describes it as a pinching sensation. Rates the pain as a 6 out of 10. He took some ibuprofen last night which seemed to give him some symptom relief. He denies any fevers or chills. Last bowel movement was this morning. Denies any blood in stool or emesis. Patient's past medical history of kidney stones. States that his symptoms feel similar to stones he has been in the past. patient has had a ureteral stent placed for stones previously. No previous abdominal surgeries. Reports he has had a colonoscopy. He is unsure of the results but states it is possible they told him he has diverticulosis. Patient is hep C positive. Duration: Day(s): (3) Left Lower Abdominal Pain Score (Numeric/FACES): 6 - Related Data Allergies Allergy/AdvReac Type Severity Reaction Status Date / Time codeine Allergy Difficulty Verified 08/08/17 11:54 Breathing fluoxetine [From Prozac] Allergy Hives Verified 08/08/17 11:54 tramadol [From Ultram] Allergy Difficulty Verified 08/08/17 11:54 Breathing Home Meds: Home Meds buPROPion HCl [Wellbutrin SR] 150 mg PO BID 02/01/16 [History] Ondansetron [Zofran ODT] 4 mg PO Q6H PRN #15 tab.dis 08/08/17 [Rx] Past Medical History Cardiovascular History: Reports: Hypertension Respiratory History: Reports: Asthma Gastrointestinal History: Reports: GERD, PUD Genitourinary History: Reports: Acute Renal Failure, Renal Calculus Neurological History: Reports: Neuropathy, Peripheral Psychiatric History: Reports: Anxiety - Infectious Disease History Infectious Disease History: Reports: Hepatitis C - Past Surgical History HEENT Surgical History: Reports: Adenoidectomy, Myringotomy w Tube(s), Tonsillectomy GI Surgical History: Reports: Colonoscopy, EGD Male Surgical History: Reports: Lithotripsy (ESWL), Ureteral Stent Musculoskeletal Surgical History: Reports: Shoulder Surgery Social & Family History - Family History Family Medical History: Noncontributory Cardiac: Reports: Hypertension Oncologic: Reports: Lymphoma, Non-Hodgkin's Lymphoma Other Oncologic Family History: dad and uncle - Tobacco Use Smoking Status *Q: Current Every Day Smoker Years of Tobacco use: 19 Packs/Tins Daily: 1 - Caffeine Use Caffeine Use: Reports: None - Recreational Drug Use Recreational Drug Use: No - Living Situation & Occupation Living situation: Reports: Single, Other Occupation: Employed ED ROS GENERAL - Review of Systems Review Of Systems: See Below Constitutional: Denies: Fever, Chills GI/Abdominal: Reports: Abdominal Pain (LLQ), Nausea, Vomiting. Denies: Constipation, Diarrhea, Hematemesis, Hematochezia, Melena : Reports: No Symptoms ED EXAM, GI/ABD - Physical Exam Exam: See Below Exam Limited By: No Limitations General Appearance: Alert, WD/WN, No Apparent Distress, Obese Throat/Mouth: Normal Inspection, Normal Voice, No Airway Compromise Neck: Normal Inspection Respiratory/Chest: No Respiratory Distress, Lungs Clear, Normal Breath Sounds Cardiovascular: Normal Peripheral Pulses, Regular Rate, Rhythm, No Murmur GI/Abdominal Exam: Normal Bowel Sounds, Soft, Non-Tender Neurological: Alert, Oriented, Normal Cognition Psychiatric: Normal Affect, Normal Mood Skin Exam: Warm, Dry, Normal Color Course - Vital Signs Last Recorded V/S: Last Vital Signs Temp 98.8 F 08/08/17 15:15 Pulse 74 08/08/17 15:15 Resp 18 08/08/17 15:15 BP 156/110 H 08/08/17 15:15 Pulse Ox 99 08/08/17 15:15 Orthostatic Blood Pressure [ 157/122 Standing] Orthostatic Blood Pressure [ 158/121 Sitting] Orthostatic Blood Pressure [ 156/118 Supine] - Orders/Labs/Meds Orders: Active Orders 24 hr Category Date Time Status Orthostatic Vital Signs [RC] ASDIRECTED Care 08/08/17 12:15 Active Peripheral IV Care [RC] . DIRECTED Care 08/08/17 12:16 Active KUB [Abdomen 1V Flat] [CR] Stat Exams 08/08/17 12:16 Taken CULTURE URINE [RM] Stat Lab 08/08/17 12:19 Received UA W/MICROSCOPIC [URIN] Stat Lab 08/08/17 12:19 Ordered Peripheral IV Insertion Adult [OM.PC] Routine Oth 08/08/17 12:15 Ordered Labs: Laboratory Tests 08/08/17 08/08/17 08/08/17 Range/Units 12:19 12:45 12:45 WBC 6.78 (4.23-9.07) K/mm3 RBC 5.23 (4.63-6.08) M/mm3 Hgb 17.1 (13.7-17.5) gm/L Hct 47.4 (40.1-51.0) % MCV 90.6 (79.0-92.2) fl MCH 32.7 H (25.7-32.2) pg MCHC 36.1 H (32.2-35.5) g/dl RDW Std Deviation 43.0 (35.1-43.9) fL Plt Count 230 (163-337) K/mm3 MPV 8.9 L (9.4-12.3) fl Neutrophils % (Manual) 63 H (40-60) % Band Neutrophils % 0 (0-10) % Lymphocytes % (Manual) 32 (20-40) % Atypical Lymphs % 0 % Monocytes % (Manual) 5 (2-10) % Eosinophils % (Manual) 0 L (0.8-7.0) % Basophils % (Manual) 0 L (0.2-1.2) Platelet Estimate Adequate RBC Morph Comment Normal Sodium 135 L (136-145) mEq/L Potassium 4.2 (3.5-5.1) mEq/L Chloride 101 (98-107) mEq/L Carbon Dioxide 23 (21-32) mEq/L Anion Gap 15.2 H (5-15) BUN 19 H (7-18) mg/dL Creatinine 1.1 (0.7-1.3) mg/dL Est Cr Clr Drug Dosing 89.30 mL/min Estimated GFR (MDRD) > 60 (>60) mL/min BUN/Creatinine Ratio 17.3 (14-18) Glucose 93 (74-106) mg/dL Calcium 8.2 L (8.5-10.1) mg/dL Total Bilirubin 0.7 (0.2-1.0) mg/dL AST 102 H (15-37) U/L ALT 198 H (16-63) U/L Alkaline Phosphatase 92 (46-116) U/L C-Reactive Protein < 0.2 (<1.0) mg/dL Total Protein 7.4 (6.4-8.2) g/dl Albumin 3.6 (3.4-5.0) g/dl Globulin 3.8 gm/dL Albumin/Globulin Ratio 1.0 (1-2) Lipase 90 (73-393) U/L Urine Color Yellow (Yellow) Urine Appearance Clear (Clear) Urine pH 7.5 (5.0-8.0) Ur Specific [place] 1.020 (1.005-1.030) Urine Protein 1+ H (Negative) Urine Glucose (UA) Negative (Negative) Urine Ketones Negative (Negative) Urine Occult Blood Negative (Negative) Urine Nitrite Negative (Negative) Urine Bilirubin Negative (Negative) Urine Urobilinogen 0.2 (0.2-1.0) Ur Leukocyte Esterase Negative (Negative) Urine RBC Not seen (0-5) /hpf Urine WBC 0-5 (0-5) /hpf Ur Epithelial Cells Not seen (0-5) /hpf Urine Bacteria Many H (FEW) /hpf Urine Mucus Few (FEW) /hpf Meds: Medications Discontinued Medications Generic Name Dose Route Start Last Admin Trade Name George PRN Reason Stop Dose Admin Sodium Chloride 1,000 mls @ 999 mls/hr 08/08/17 12:15 08/08/17 12:44 Normal Saline IV 08/08/17 13:15 999 mls/hr ONETIME ONE Administration Sodium Chloride 1,000 mls @ 999 mls/hr 08/08/17 13:48 08/08/17 13:55 Normal Saline IV 08/08/17 14:48 999 mls/hr ONETIME ONE Administration Ondansetron HCl 4 mg 08/08/17 12:15 08/08/17 12:45 Zofran IVPUSH 08/08/17 12:16 4 mg ONETIME ONE Administration Ondansetron HCl 4 mg 08/08/17 13:48 08/08/17 13:55 Zofran IVPUSH 08/08/17 13:49 4 mg ONETIME ONE Administration Sodium Chloride 10 ml 08/08/17 12:15 08/08/17 12:46 Saline Flush FLUSH 10 ml ASDIRECTED PRN Administration Keep Vein Open - Re-Assessments/Exams Free Text/Narrative Re-Assessment/Exam: 08/08/17 15:08 Checked on the patient. He is feeling better at this time. I reviewed the labs and imaging with the patient. Will discharge home with some Zofran and follow-up the primary care provider early next week. Discharge instructions as documented. Departure - Departure Time of Disposition: 15:09 Disposition: Home, Self-Care 01 Condition: Fair Clinical Impression: Nausea - Discharge Information Prescriptions: Ondansetron [Zofran ODT] 4 mg PO Q6H PRN #15 tab.dis PRN Reason: Nausea Instructions: Nausea, Adult Referrals: Nolvia Velazco NP [Primary Care Provider] - Nichole Mathews MD [Physician] - Forms: ED Department Discharge Additional Instructions: zofran Take 1 tab sublingual every 6 hours as needed for nausea. make sure you are drinking plenty of fluids. Follow-up with family medicine next week to ensure that your symptoms are improving. Here in [place] recommend Dr. Mathews at the [facility]. Call [phone] schedule with her. Please return to the ER if your symptoms change or worsen. - My Orders Last 24 Hours: My Active Orders 08/08/17 12:15 Orthostatic Vital Signs [RC] ASDIRECTED Peripheral IV Insertion Adult [OM.PC] Routine 08/08/17 12:16 Peripheral IV Care [RC] . DIRECTED KUB [Abdomen 1V Flat] [CR] Stat 08/08/17 12:19 CULTURE URINE [RM] Stat UA W/MICROSCOPIC [URIN] Stat - Assessment/Plan Last 24 Hours: My Active Orders 08/08/17 12:15 Orthostatic Vital Signs [RC] ASDIRECTED Peripheral IV Insertion Adult [OM.PC] Routine 08/08/17 12:16 Peripheral IV Care [RC] . DIRECTED KUB [Abdomen 1V Flat] [CR] Stat 08/08/17 12:19 CULTURE URINE [RM] Stat UA W/MICROSCOPIC [URIN] Stat
[2017-08-08 15:21] VITALS: BP 156/110
--- NOTE | 2017-08-11 08:26 | CR ---
Abdomen: Supine view of the abdomen was obtained. Comparison: Prior abdominal x-ray of 05/14/16. Stent seen on prior abdominal x-ray within the right ureter has been removed in the interim from current study. Bowel gas pattern is normal. No abnormal calcifications or discrete soft tissue abnormality is appreciated. Impression: 1. Prior study showed a right ureteral stent which has been removed. 2. Supine abdominal x-ray shows no acute abnormality. Diagnostic code #1
== END 2017-08-08 15:15 | disposition home or self-care (01) ==
LOC: JD.ED 11:42
DX: R11.2 Nausea with vomiting, unspecified (principal); R10.32 Left lower quadrant pain; I10 Essential (primary) hypertension; J45.909 Unspecified asthma, uncomplicated; F17.210 Nicotine dependence, cigarettes, uncomplicated; Z88.5 Allergy status to narcotic agent; Z88.8 Allergy status to other drugs, medicaments and biological substances; Z79.899 Other long term (current) drug therapy
CPT/HCPCS: 36415; 74018; 80053; 81001; 83690; 85007; 85027; 86140; 87086; 96361; 96374; 96376; 99284; J2405; J7040; J7050

== ENCOUNTER 2020-04-29 16:09 | Emergency (ER) | payer MEDICAID ==
[2020-04-29 16:43] VITALS: PULSE 115
[2020-04-29] MEDS: Sodium Chloride 0.9% 1,000 ML IV STA (17:02)
[2020-04-29] MEDS: Ondansetron 4 MG/2 ML SDV IVPUSH ONE (17:04)
[2020-04-29] MEDS: Thiamine 200 MG/2 ML MDV IVPUSH ONE (17:05)
[2020-04-29] MEDS: HYDROmorphone 0.5 MG/0.5 ML Syringe IVPUSH ONE (17:07)
[2020-04-29] MEDS: Sodium Chloride 0.9% 10 ML Syringe FLUSH PRN (17:08)
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
[2020-04-29] MEDS: Diatrizoate Meglumine/Diatrizoate Sodium 37% 120 ML Bottle PO ONE (18:29)
[2020-04-29] MEDS: Iopamidol 612 MG/ML 100 ML Bottle IVPUSH ONE (18:29)
[2020-04-29] MEDS: Sodium Chloride 0.9% 10 ML Syringe FLUSH SCH (18:30)
[2020-04-29] MEDS: HYDROmorphone 1 MG/ML Syringe IVPUSH ONE (19:13)
[2020-04-29] MEDS: cloNIDine 0.1 MG Tab PO ONE (19:50)
[2020-04-29 19:51] VITALS: BP 163/103
--- NOTE | 2020-04-30 09:15 | CT ---
CT abdomen and pelvis Technique: Multiple axial sections were obtained from above the dome of the diaphragm inferiorly through the pubic symphysis. Intravenous and oral contrast was utilized. Delayed images were obtained of the bladder. Reconstructed coronal and sagittal images were obtained. Comparison: Prior CT abdomen and pelvis study of 06/24/17. Findings: Slight epicardial fat pads are seen which are felt to be incidental. Fatty infiltration is noted within the liver. No focal parenchymal abnormality is otherwise seen within the liver. Spleen size is normal. Adrenal glands show no nodule. Pancreas is within normal limits. Gallbladder contains no calcified gallstones. Abdominal aorta shows no aneurysm. 3 small nonobstructing stones are noted within the left kidney. Single nonobstructing stone is noted within the right kidney. These measure less than 5 mm. No retroperitoneal adenopathy or mesenteric abnormalities are seen. No pelvic mass or adenopathy is identified. Appendix is felt to be visualized and normal in size. Delayed images show contrast within the distal ureters and bladder. No free fluid or inflammatory change is appreciated. Bone window settings were reviewed which show no acute osseous finding. Impression: 1. Epicardial fat pads which are incidental. 2. Fatty infiltration within the liver. 3. Nonobstructing calculi are noted within both kidneys. 4. Nothing acute is appreciated. Diagnostic code #2 I agree with preliminary report from [facility], finalized on 04/29/20, 9:01 PM CDT
== END 2020-04-29 20:37 | disposition home or self-care (01) ==
LOC: JD.ED 16:09
DX: R74.8 Abnormal levels of other serum enzymes (principal); R10.31 Right lower quadrant pain; F10.10 Alcohol abuse, uncomplicated; R10.11 Right upper quadrant pain; I10 Essential (primary) hypertension; J45.909 Unspecified asthma, uncomplicated; Y90.0 Blood alcohol level of less than 20 mg/100 ml; Z72.0 Tobacco use; Z88.5 Allergy status to narcotic agent; Z88.8 Allergy status to other drugs, medicaments and biological substances; Z79.899 Other long term (current) drug therapy
CPT/HCPCS: 36415; 74177; 74177-26; 80053; 80306; 80307; 83690; 83735; 85025; 85610; 96374; 96375; 96376; 99284; 99284-25; A9270-GY; J1170; J2405; J3411; J7030; Q9963; Q9967

== ENCOUNTER 2020-05-27 13:56 | Emergency (ER) | payer MEDICAID ==
[2020-05-27 14:09] VITALS: BP 105/91; PULSE 109
[2020-05-27] MEDS ORDERED: Sodium Chloride 0.9% 10 ML Syringe FLUSH PRN (14:31)
[2020-05-27] MEDS ORDERED: Ondansetron 4 MG/2 ML SDV IVPUSH ONE (14:31)
[2020-05-27] MEDS ORDERED: Famotidine 20 MG/2 ML SDV IVPUSH ONE (14:33)
[2020-05-27] MEDS ORDERED: Sodium Chloride 0.9% 1,000 ML IV SCH (14:45)
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
[2020-05-27] MEDS ORDERED: LORazepam 2 MG/ML SDV IVPUSH ONE (15:51)
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
== END 2020-05-27 17:14 | disposition home or self-care (01) ==
LOC: JD.ED 13:56
DX: F10.230 Alcohol dependence with withdrawal, uncomplicated (principal); Y90.0 Blood alcohol level of less than 20 mg/100 ml; Z72.0 Tobacco use; I10 Essential (primary) hypertension; Z79.899 Other long term (current) drug therapy; Z88.5 Allergy status to narcotic agent; Z88.8 Allergy status to other drugs, medicaments and biological substances
CPT/HCPCS: 36415; 71045; 80053; 80306; 80307; 83690; 83735; 84443; 85025; 93005; 96374; 96375; 99285; J2405; J3490; J7030; 93010; 99284